=== PATIENT | male | born 1985 | race Hispanic/Latino ===

== ENCOUNTER 2022-05-28 13:26 | Emergency (ER) | payer SELFPAY ==
[~2022-05-28] VITALS: Ht 167.6 cm; Wt 109.1 kg
[~2022-05-28 13:26] MED LIST: NAPROSYN500 MG PO
[2022-05-28] MEDS ORDERED: METHOCARBAMOL750 MG PO (14:38)
[2022-05-28] MEDS ORDERED: NAPROXEN500 MG PO (14:38)
[2022-05-28] MEDS ORDERED: MEDDOSEPAK PO (15:36)
[2022-05-28 15:44] VITALS: BP 118/89
== END 2022-05-28 15:44 | disposition home or self-care (01) | DRG 563 ==
LOC: ED 13:26
DX: S39.012A Strain of muscle, fascia and tendon of lower back, initial encounter (principal); X50.0XXA Overexertion from strenuous movement or load, initial encounter